=== PATIENT | male | born 1985 | race Caucasian/White ===

== ENCOUNTER 2021-02-21 19:56 | Emergency (ER) | payer SELFPAY ==
[2021-02-21 19:57] VITALS: BP 156/98; PULSE 93; RESP 15; TEMP 36.3; O2SAT 98; BMI 31.4
--- NOTE | 2021-02-21 20:22 | CM.ED ---
KT Note Patient is in the ED and reports SI. Per face sheet patient has no insurance. KT called Taylor at [facility]. She will come over to see the patient. Demographic and triage note printed out for her. special education itinerant teacher Alyssa updated. Rec Therapist updated. Plan: Crisis to evaluate Linsey Leonard GUTIERREZ
--- NOTE | 2021-02-21 20:31 | EX.ED.VIS.PS ---
HPI HPI - Psych History of Present Illness Chief Complaint: Suicidal Informant: patient and spouse/S.O. Onset/Context/Timing Onset: Month(s) Conflict: Family and Work Associated Symptoms Associated Symptoms - Psych: Positive for Depressed, Change in Eating, Change in sleeping, Decreased Interest and Suicidal Thoughts Specific plan (suicidal thought): Shoot himself Narrative Narrative: Patient presents with secondary to suicidal ideation. Patient reports history of depression in the past but has never been on medication or seen anyone about this. 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 His father also has had some health issues. Apparently today the patient had a gun in his hand. He sent a text message to his essentially saying goodbye. Patient is a smoker. He denies drug use. He does have a history of alcohol use. He did go to recently. He had 3 drinks this morning but had not had a drink in 10 days prior to this. PFSH PFS Medical History Alcohol abuse Depression Former smoker Home Medications NK 02/21/21 [History Last Taken Unknown] Allergy/AdvReac Type Severity Reaction Status Date / Time No Known Allergies Allergy Verified 02/21/21 19:59 Surgical History History of arthroscopic knee surgery Social History (Updated 02/21/21 @ 20:[address] Leann Armstrong MD) Smoking Status: Current some day smoker tobacco type: cigarettes and smokeless tobacco substance use type: does not use ROS ROS ED Constitutional Constitutional ED: Denies chills or fever(s) Eyes Eyes: Denies change in vision ENT ENT ED: Denies sore throat Cardiovascular Cardiovascular: Denies chest pain Respiratory/Chest Respiratory/Chest: Denies cough or dyspnea Gastrointestinal Gastrointestinal: Denies abdominal pain, diarrhea, nausea or vomiting Musculoskeletal Musculoskeletal: Denies back pain or neck pain Integumentary Denies rash Neurologic Neurologic: Denies headache(s) or weakness Psychiatric Psychiatric: Reports anxiety, depression and suicidal thoughts Endocrine Endocrinology: Denies polydipsia or polyuria Allergic/Immunologic Allergic/Immunologic ED: Denies urticaria EXAM Physical Exam Const Vital Signs: 02/21/21 19:57 02/21/21 21:32 02/21/21 22:05 Temperature 97.4 F L Temperature Source Temporal Pulse Rate 93 Respiratory Rate 15 14 14 Blood Pressure 156/98 H Blood Pressure Mean 117 Pulse Ox 98 Oxygen Delivery Method Room Air Room Air Positive well nourished and well developed General Appearance ED: well developed HEENT normocephalic and atraumatic Eyes PERRL and EOMs intact bilaterally Resp normal respiratory effort and clear to auscultation bilaterally Cardio Rate: regular rate Rhythm: regular rhythm GI non-tender Auscultation: hypoactive bowel sounds Palpation: soft Neuro oriented x3 and no sensory deficits noted Sensorium / Orientation: alert Motor Exam: strength 5/5 throughout Psych cooperative Appearance: grossly normal Attitude: calm Activity / Motor Behavior: appropriate eye contact Speech: normal speech Mood & Affect: anxious Thought Content: suicidality Skin Lesions: no lesions Rashes: no rashes MDM MDM MDM Narrative Medical decision making narrative: Patient underwent medical clearance for psychiatric placement. [place] slip has been filled out. Lab Data Attestation: I reviewed the patient's lab results. Labs: Laboratory Results - last 24 hr 02/21/21 02/21/21 02/21/21 20:42 20:42 20:42 WBC 7.6 RBC 4.74 Hgb 15.2 Hct 44.4 MCV 93.7 MCH 32.1 H MCHC 34.2 RDW Std Deviation 40.5 RDW Coeff of Oziel 11.7 Plt Count 265 MPV 9.9 Immature Gran % (Auto) 0.700 Neut % (Auto) 47.3 Lymph % (Auto) 42.9 H [place] % (Auto) 6.6 Eos % (Auto) 1.8 Baso % (Auto) 0.7 Absolute Neuts (auto) 3.6 Absolute Lymphs (auto) 3.27 Nucleated RBC % 0 Sodium 139 Potassium 3.7 Chloride 105 Carbon Dioxide 25.0 Anion Gap 9 BUN 5 L Creatinine 0.73 Estim Creat Clear Calc 147.56 Est GFR (MDRD) Af Amer 155 Est GFR (MDRD) Non-Af 128 BUN/Creatinine Ratio 6.8 L Glucose 99 Calcium 9.4 Urine Opiates Screen Urine Methadone Screen Ur Barbiturates Screen Ur Phencyclidine Scrn Ur Amphetamines Screen U Methamphetamin-MDMA U Benzodiazepines Scrn Urine Cocaine Screen U Cannabinoids Screen Ur Drug Screen Comment Ethyl Alcohol 200.0 02/21/21 21:29 WBC RBC Hgb Hct MCV MCH MCHC RDW Std Deviation RDW Coeff of Oziel Plt Count MPV Immature Gran % (Auto) Neut % (Auto) Lymph % (Auto) [place] % (Auto) Eos % (Auto) Baso % (Auto) Absolute Neuts (auto) Absolute Lymphs (auto) Nucleated RBC % Sodium Potassium Chloride Carbon Dioxide Anion Gap BUN Creatinine Estim Creat Clear Calc Est GFR (MDRD) Af Amer Est GFR (MDRD) Non-Af BUN/Creatinine Ratio Glucose Calcium Urine Opiates Screen NEGATIVE Urine Methadone Screen NEGATIVE Ur Barbiturates Screen NEGATIVE Ur Phencyclidine Scrn NEGATIVE Ur Amphetamines Screen NEGATIVE U Methamphetamin-MDMA NEGATIVE U Benzodiazepines Scrn NEGATIVE Urine Cocaine Screen NEGATIVE U Cannabinoids Screen NEGATIVE Ur Drug Screen Comment Ethyl Alcohol Treatment and Re-Evaluation Comments:: At this time patient's alcohol level is still 200. This will be repeated at 2 AM. Staff from the counseling center has already seen the patient. They are in agreement the patient will be placed. Discharge Plan Triage Chief Complaint: Suicidal ED Provider: Leann Armstrong Dx/Rx/DC Orders Clinical Impression: Suicidal ideation Prescriptions: No Action NK RF: 0 Primary Care Provider: Care Physician,No Primary Referrals: Care Physician,No Primary [Primary Care Provider] - Disposition Disposition: Psychiatric Hospital or Unit
[2021-02-21 20:52] LABS: Absolute Lymphocyte Count 3.27 X10^3/uL (0.83-4.51); Absolute Neutrophil Count 3.6 X10^3/uL (2.0-7.7); Basophil# 0.05 X10^3/uL; Basophil% 0.7 % (0-1); Eosinophil# 0.14 X10^3/uL; Eosinophils% 1.8 % (0-5); Hematocrit 44.4 % (40-54); Hemoglobin 15.2 g/dL (13.0-16.5); Lymphocyte # 3.27 X10^3/ul (0.83-4.51); Lymphocyte % 42.9 % (19-41); Mean Corp Hgb Conc 34.2 g/dL (32-36); Mean Corpuscular Hgb 32.1 pg (27.0-32.0); Mean Corpuscular Volume 93.7 fL (80-94); Mean Platelet Vol. 9.9 fl (6.2-12.0); Monocyte% 6.6 % (0-10); NRBC Flagged by Analyzer 0 % (0-5); Neutrophil # 3.61 X10^3/uL (2.7-7.7); Neutrophil % 47.3 % (47-70); Platelet Count 265 K/mm3 (150-450); RBC Distribution Width CV 11.7 % (11.6-14.6); RBC Distribution Width SD 40.5 fl (35.1-43.9); Red Blood Count 4.74 M/mm3 (4.6-6.2); White Blood Count 7.6 K/mm3 (4.4-11.0)
[2021-02-21 21:15] LABS: Anion Gap 9 (5-15); BUN 5 mg/dL (7-18); BUN/Creat Ratio 6.8 RATIO (10-20); Calcium,Total 9.4 mg/dL (8.5-10.1); Chloride 105 mmol/L (98-107); Creatinine, Serum 0.73 mg/dL (0.70-1.30); EST Glomerular Filtration Rate 128 mL/min (>60); Est Glom Filt Rate - Afr Amer 155 mL/min (>60); Estimated Creatinine Clearance 147.56 ml/min; Glucose 99 mg/dL (74-106); Potassium 3.7 mmol/L (3.5-5.1); Sodium Level 139 mmol/L (136-145)
[2021-02-21 21:32] VITALS: RESP 14
[2021-02-21 22:05] VITALS: RESP 14
[2021-02-21 22:27] LABS: Amphetamine Urine VISTA NEGATIVE (<1000 ng/mL); Barbiturate Urine VISTA NEGATIVE (< 200 ng/mL); Benzodiazepine Urine VISTA NEGATIVE (< 200 ng/mL); Cocaine Urine VISTA NEGATIVE (< 300 ng/mL); Ecstacy Urine VISTA NEGATIVE (< 500 ng/mL); Methadone Urine VISTA NEGATIVE (< 300 ng/mL); PCP Urine VISTA NEGATIVE (< 25 ng/mL); THC Urine VISTA NEGATIVE (< 50 ng/mL); Vista UDS pH Range 5
[2021-02-21 23:20] VITALS: BP 120/78; PULSE 70; RESP 16; O2SAT 99
[2021-02-22] VITALS: RESP 16
--- NOTE | 2021-02-22 00:28 | ED.RN ---
HEBER THE [employer]TER [employer]ICER HAD CONTACTED [facility] BEFORE SHE LEFT. [facility] CAME IN AND EVALUATED, BUT CANT DO ANYTHING UNTIL PATIETNS ALCOHOL LEVEL COMES DOWN.
--- NOTE | 2021-02-22 03:14 | ED.RN ---
CALLED [facility] AGAIN BECAUSE ALCOHOL WAS LOW
--- NOTE | 2021-02-22 03:28 | ED.RN ---
[facility] CALLED AND PATIENT IS PENDING AT [facility]
--- NOTE | 2021-02-22 03:51 | ED.RN ---
[facility] CALLED, THEY HAVE NO BEDS OPEN AND NO PENDING DISCHARGES FOR TODAY. CALLED MARY FROM [facility] SHE IS GOING TO KEEP LOOKING
--- NOTE | 2021-02-22 03:58 | ED.RN ---
PATIENT IS NOW PENDING AT [facility]
[2021-02-22 05:00] VITALS: BP 141/95; PULSE 86; RESP 14; O2SAT 97
--- NOTE | 2021-02-22 05:27 | ED.RN ---
[facility] CALLED ABOUT THE PATIENT. THE INSURANCE THAT THEY HAVE THEY DO NOT USE, SO IT WOULD BE $4200 UP FRONT FOR THE PATIENT TO GO. TALKED TO THE DOCTOR AND ALSO THE NURSE ABOUT IT. THE AIRCRAFT MACHINIST HELPER TALKED TO AND THE SAID THEY WOULD PAY THE $4200. [facility] WAS NOTIFIED AND WOULD CALL BACK SHORTLY
[2021-02-22] MEDS: LORazepam 1 MG Tablet PO (05:46)
[2021-02-22 06:12] VITALS: BP 141/95; PULSE 86; RESP 14; TEMP 36.7; O2SAT 97
== END 2021-02-22 07:09 ==
PROVIDERS: Emergency Provider Emergency Medicine
DX: F32.A Depression, unspecified (principal); R45.851 Suicidal ideations; F10.10 Alcohol abuse, uncomplicated; Y90.7 Blood alcohol level of 200-239 mg/100 ml; Z20.822 Contact with and (suspected) exposure to COVID-19; F17.210 Nicotine dependence, cigarettes, uncomplicated
CPT/HCPCS: 80048; 80307; 82077; 85025; 87426; 99285